=== PATIENT | female | born 1940 | race Caucasian/White ===

== ENCOUNTER → 2017-09-27 | Outpatient (CLI) | payer MEDICARE ==
--- NOTE | 2017-09-27 08:49 | MR ---
EXAMINATION TYPE: MR knee LT wo con DATE OF EXAM: 09/27/2017 COMPARISON: NONE HISTORY: Left knee pain per order. Pain swelling and locking sensation for 1.5 months per patient. TECHNIQUE: Multiplanar, multisequence images of the knee is performed without IV contrast. FINDINGS: MEDIAL MENISCUS: Anterior horn is anteriorly and medially extruded with irregular increased signal ex tending to articular surface. There is oblique increased signal posterior horn of medial meniscus ext ending to inferior articular surface on sagittal image 24. LATERAL MENISCUS: There is significant triangular shaped increased opacity anterior posterior horns with linear extension to central body. There appears to be extension to inferior meniscal surface on parasagittal image 9. CRUCIATE LIGAMENTS: The anterior and posterior cruciate ligaments are intact and unremarkable. COLLATERAL LIGAMENTS: The medial collateral ligament and lateral collateral ligament complex are inta ct. There is increased fluid signal surrounding medial collateral ligament on coronal image 17. EXTENSOR MECHANISM: Visualized quadriceps and patellar tendons are intact. 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 EFFUSION: No significant suprapatellar joint effusion. POPLITEAL CYST: There is fairly large size elongated popliteal/sidhu cyst measuring almost 8 cm on lo ng axis sagittal image 24 with septation present superiorly. TRICOMPARTMENT SPACES: There is moderate to severe joint space loss patellofemoral compartment. There is mild joint space loss with mild to moderate spurring lateral tibiofemoral compartment. There is m oderate joint space loss with mild spurring medial tibiofemoral compartment. Tibial condylar spurring is seen. CARTILAGE: There is significant chondromalacia patella with near full-thickness and full-thickness defects identified along posterior patellar pole. Some cartilaginous loss medial tibiofemoral compart ment is seen without full-thickness defect. BONE MARROW SIGNAL: Some heterogeneous increased T2 signal medial tibial plateau is consistent osseou s contusion or bone marrow edema likely reactive from MCL sprain and degenerative change at this leve l. OTHER: There is increased fluid signal superior fat pad just above the patella. IMPRESSION: 1. Full-thickness oblique tear posterior horn of medial meniscus. 2. Complex full-thickness tear anterior horn of medial meniscus. 3. Full-thickness tear anterior and posterior horn of lateral meniscus. 4. 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 No osseous changes observed. 5. Moderate MCL sprain. 6. Elongated popliteal cyst. 7. Background mild to moderate degenerative changes lateral and medial tibiofemoral compartments most prominent medial aspect likely on basis of osteoarthritis. Some bone marrow edema medial aspect medi al tibial plateau is noted. 8. Loss of normal fat anterior superior fat pad, correlate for fat pad impingement syndrome.
== END | disposition home or self-care (01) ==
LOC: RADMRIMAIN 06:43
PROVIDERS: ATTEND Orthopaedic Surgery
DX: S83.232A Complex tear of medial meniscus, current injury, left knee, initial encounter (principal); S83.282A Other tear of lateral meniscus, current injury, left knee, initial encounter; M17.12 Unilateral primary osteoarthritis, left knee; M22.42 Chondromalacia patellae, left knee; S83.502A Sprain of unspecified cruciate ligament of left knee, initial encounter; M71.22 Synovial cyst of popliteal space [Baker], left knee